=== PATIENT | male | born 1995 | race Two or more races ===

== ENCOUNTER 2019-07-15 21:11 | Emergency (ER) | payer OTHER ==
--- NOTE | 2019-07-15 21:46 | EDM.PDOC ---
ED [facility] GENERAL MEDICAL PROBLEM - General Chief Complaint: Lower Extremity Injury/Pain Stated Complaint: RIGHT CALF INJURY Time Seen by Provider: 07/15/19 21:14 Source of Information: Reports: Patient History Limitations: Reports: No Limitations - History of Present Illness INITIAL COMMENTS - FREE TEXT/NARRATIVE: This is a 23-year-old male. He was playing basketball this evening and as he pivoted on his right foot he felt a pop in his right lower leg. He fell to the ground and then he attempted to get up and walk on that right leg and it was too painful and he could not get up from the ground. He comes to the ER for evaluation. He denies any significant swelling of his right calf or his foot or ankle. When he tries to do dorsiflex his right foot that is when he gets marked pain in his right calf area. He denies any other acute injuries. - Related Data Allergies Allergy/AdvReac Type Severity Reaction Status Date / Time norco Allergy Severe Nausea and Uncoded 07/15/19 21:23 Vomiting Social & Family History - Tobacco Use Smoking Status *Q: Never Smoker - Caffeine Use Caffeine Use: Reports: None Review of Systems - Review of Systems Review Of Systems: See Below Constitutional: Denies: Chills, Fever Eyes: Reports: No Symptoms Ears: Reports: No Symptoms Nose: Reports: No Symptoms Mouth/Throat: Reports: No Symptoms Respiratory: Reports: No Symptoms Cardiovascular: Reports: No Symptoms GI/Abdominal: Reports: No Symptoms Genitourinary: Reports: No Symptoms Musculoskeletal: Reports: Other (As per HPI) Skin: Reports: No Symptoms Neurological: Reports: No Symptoms Psychiatric: Reports: No Symptoms ED EXAM, GENERAL - Physical Exam Exam: See Below Exam Limited By: No Limitations General Appearance: Alert, WD/WN, No Apparent Distress Eye Exam: Bilateral Eye: Normal Inspection Ears: Normal External Exam Nose: Normal Inspection Throat/Mouth: Normal Lips, Normal Voice, No Airway Compromise Head: Normocephalic Neck: Supple Respiratory/Chest: No Respiratory Distress Back Exam: Full Range of Motion Extremities: Normal Inspection, Other (When I examined his right lower leg he is markedly tender where the Achilles tendon comes and begins to feather into the calf muscle. He has no deficit of the Achilles tendon down by the heel or as we go up the lower leg. When I squeeze his calf muscle he has marked tenderness but his foot does move and in a downward position so we know the Achilles tendon is still intact. There is no obvious swelling but he cannot dorsiflex his foot without marked increased calf pain. The left lower extremity is atraumatic) Neurological: Alert, Oriented Psychiatric: Normal Affect, Normal Mood Skin Exam: Warm, Dry Course - Vital Signs Last Recorded V/S: Last Vital Signs Temp 97.1 F 07/15/19 21:19 Pulse 73 07/15/19 21:19 Resp 16 07/15/19 21:19 BP 139/83 07/15/19 21:19 Pulse Ox 100 07/15/19 21:19 - Orders/Labs/Meds Orders: Active Orders 24 hr Category Date Time Status DME for Discharge [COMM] Stat Oth 07/15/19 21:39 Ordered Departure - Departure Time of Disposition: 21:43 Disposition: Home, Self-Care 01 Condition: Good Clinical Impression: Strain of right calf muscle Partial tear of right Achilles tendon Qualifiers: Encounter type: initial encounter Qualified Code(s): S86.011A - Strain of right Achilles tendon, initial encounter - Discharge Information *PRESCRIPTION DRUG MONITORING PROGRAM REVIEWED*: No *COPY OF PRESCRIPTION DRUG MONITORING REPORT IN PATIENT [place]: No Instructions: How to Use Cold Therapy, [id number], Crutch Use, Adult, Easy-to -Read Referrals: Fidel Cooper MD [Physician] - Forms: ED Department Discharge, ED Return to Work/School Form Additional Instructions: Get the medicines for pain from the [employer] machine in the lobby, take them as directed, use crutches at all times and do not bear weight on your right leg until after you see Dr. Cooper and see what he says about rehab, call Dr. Cooper's office Wednesday at 8 AM to get an appointment to be seen and make sure you tell them you were in the ER over the weekend, ice and elevate that right calf as much as possible over the next 48 hours, return to the ER if needed Sepsis Event Note - Evaluation Sepsis Screening Result: No Definite Risk - Focused Exam Vital Signs: Vital Signs Temp Pulse Resp BP Pulse Ox 07/15/19 21:19 97.1 F 73 16 139/83 100 Date Exam was Performed: 07/15/19 Time Exam was Performed: 21:40 - My Orders Last 24 Hours: My Active Orders 07/15/19 21:39 DME for Discharge [COMM] Stat - Assessment/Plan Last 24 Hours: My Active Orders 07/15/19 21:39 DME for Discharge [COMM] Stat
== END 2019-07-15 22:15 | disposition home or self-care (01) ==
LOC: JD.ED 21:11
CPT/HCPCS: 99283

== ENCOUNTER 2019-07-19 14:41 | Emergency (ER) | payer OTHER | END 2019-07-19 15:05 | disposition left against medical advice (07) | LOC: JD.ED 14:41 | DX: Z53.21 Procedure and treatment not carried out due to patient leaving prior to being seen by health care provider (principal) ==